=== PATIENT | male | born 1995 | race Caucasian/White ===

== ENCOUNTER 2019-03-15 08:09 | Outpatient (CLI) | payer OTHER ==
[~2019-03-15] VITALS: Ht 170.2 cm; Wt 74.6 kg
[2019-03-15] MEDS ORDERED: FOLIC ACID 11 MG/TA1 PO (08:48)
[2019-03-15] MEDS ORDERED: ZOFRAN ODT8 MG PO (08:49)
[2019-03-15] MEDS ORDERED: CLARITIN 1010 MG/TAB PO (08:49)
[2019-03-15] MEDS ORDERED: ZANTAC 150MG T150 MG PO (08:49)
[2019-03-15] MEDS ORDERED: B-121000 MCG PO (08:50)
== END 2019-03-15 08:51 | disposition home or self-care (01) ==
LOC: EUO 08:09
DX: C81.10 Nodular sclerosis Hodgkin lymphoma, unspecified site (principal)
CPT/HCPCS: Q5111